=== PATIENT | female | born 1985 | race Caucasian/White ===

== ENCOUNTER 2025-02-03 10:26 | Emergency (ER) | payer MEDICAID ==
[~2025-02-03] VITALS: Ht 149.9 cm; Wt 59.0 kg
[2025-02-03 10:31] VITALS: O2SAT 100
[2025-02-03] MEDS ORDERED: DICL100G58 TP (10:56)
[2025-02-03] MEDS: DIAZEPAM 5 MG/ML 2ML SYR IM ONE (11:00)
[2025-02-03 12:05] VITALS: BP 118/68; PULSE 89; RESP 12; TEMP 36.9; O2SAT 100
== END 2025-02-03 12:12 | disposition home or self-care (01) ==
LOC: ER 10:26
DX: S33.5XXA Sprain of ligaments of lumbar spine, initial encounter (principal); S13.9XXA Sprain of joints and ligaments of unspecified parts of neck, initial encounter; M45.9 Ankylosing spondylitis of unspecified sites in spine; M54.40 Lumbago with sciatica, unspecified side; Z79.899 Other long term (current) drug therapy; X58.XXXA Exposure to other specified factors, initial encounter; Y93.89 Activity, other specified; Y92.89 Other specified places as the place of occurrence of the external cause; Y99.8 Other external cause status
CPT/HCPCS: 99283; 96372; J3360